=== PATIENT | male | born 1930 | race Caucasian/White ===

== ENCOUNTER 2016-05-20 09:31 | Emergency (ER) | payer OTHER ==
[~2016-05-20] VITALS: Ht 167.6 cm; Wt 61.2 kg
--- NOTE | 2016-05-20 09:49 | Emergency Room Report ---
History of Present Illness General Chief Complaint: Upper Respiratory Illness Source: Patient Present Illness HPI Patient is a 85-year-old male who presented after having increased sore throat nasal congestion and cough. Patient reported having a nonproductive cough which was associated with some postnasal drip. The patient denied fever. He reportedly had increased cough with supine position. He is not currently a smoker but smoked years ago. He denies any shortness of breath. He reports having intermittent symptoms which are worse at night. He has been taking diuretics for daily. Patient is not taking LATIA inhibitors. He denied any extremity pain or swelling. Allergies: Coded Allergies: No Known Allergies (Unverified , 05/20/16) Patient History Past Medical History: see triage record Reviewed Nursing Documentation: PMH: Agreed, PSxH: Agreed Nursing Documentation-PMH Past Medical History: No History, Except For Hx Cardiac Problems: Yes - Coronary bypass surgery Hx Hypertension: Yes Review of Systems All Other Systems: negative except mentioned in HPI Physical Exam Vital Signs Date Time Temp Pulse Resp B/P Pulse Ox O2 Delivery O2 Flow Rate FiO2 05/20/16 09:33 97.7 88 16 123/72 98 Room Air Sp02 EP Interpretation: reviewed, normal General Appearance: normal inspection, well appearing, no apparent distress, alert, GCS 15 Head: atraumatic ENT: normal ENT inspection, hearing grossly normal, normal voice Neck: normal inspection, full range of motion, supple, no bony tend Respiratory: normal inspection, lungs clear, normal breath sounds, no respiratory distress, no retraction, no wheezing Cardiovascular #1: regular rate, rhythm, no edema Gastrointestinal: normal inspection, normal bowel sounds, non tender, soft, no guarding, no hernia Genitourinary: no CVA tenderness Musculoskeletal: normal inspection, back normal, normal range of motion Neurologic: normal inspection, alert, oriented x3, responsive, mechanical handyman III-XII nml as tested, motor strength/tone normal, speech normal Psychiatric: normal inspection, judgement/insight normal, mood/affect normal Skin: normal inspection, normal color, no rash Medical Decision Making Diagnostic Impression: Primary Impression: Upper respiratory infection ER Course The patient presented for cough. Differential diagnosis included but was not limited to bronchitis, pneumonia, pulmonary embolism, congestive heart failure, pericarditis, asthma, foreign body. X-ray imaging of the chest was ordered the patient's symptoms and prior history. The chest x-ray showed evidence of cardiac congestion. Patient was given prescription for cough syrup. Patient was advised to continue taking his diuretics.The patient is advised to follow up with primary care doctor in 1-2 days. Patient is advised to return if any worsening condition or if any changes in status that are concerning. Chest X-Ray Diagnostic Results EP Interpretation: Yes Findings: no consolidation, no effusion, no pneumothorax, other - cardiomegaly , s/p sternotomy Number of Views: 1 Last Vital Signs Date Time Temp Pulse Resp B/P Pulse Ox O2 Delivery O2 Flow Rate FiO2 05/20/16 09:33 97.7 88 16 123/72 98 Room Air Status: improved Disposition: HOME, SELF-CARE Condition: Stable Scripts D-Methorphan Hb/Prometh Hcl* (PROMETHAZINE-DM SYRUP*) 118 Ml Syrup 5 ML ORAL Q6H Y for For Cough, #90 ML 0 Refills Prov: Willis Moscoso 05/20/16 Willis Moscoso May 20, 2016 09:49
[2016-05-20] MEDS ORDERED: CRANBERRY400 MG PO (09:50)
[2016-05-20] MEDS ORDERED: VITAMIN C500 M1 ORAL (09:50)
[2016-05-20] MEDS ORDERED: ATORVASTATIN CA40 MG ORAL (09:50)
[2016-05-20] MEDS ORDERED: LOSARTAN POTASS25 MG ORAL (09:50)
[2016-05-20] MEDS ORDERED: OMEGA 3 FISH O1 EAC1 PO (09:50)
[2016-05-20] MEDS ORDERED: ASPIR 8181 MG ORAL (09:50)
[2016-05-20] MEDS ORDERED: TUMS500 MG ORAL (10:01)
[2016-05-20] MEDS ORDERED: FUROSEMIDE20 M1 ORAL (10:01)
[2016-05-20] MEDS ORDERED: PROMETHAZINE-D118 ML ORAL (10:08)
[2016-05-20 10:22] VITALS: BP 120/64
== END 2016-05-20 10:22 | disposition home or self-care (01) ==
LOC: EMR 10:00
DX: J06.9 Acute upper respiratory infection, unspecified (principal); I10 Essential (primary) hypertension; Z87.891 Personal history of nicotine dependence; I51.7 Cardiomegaly
CPT/HCPCS: 71010; 99283